=== PATIENT | female | born 1970 | race African-American/Black ===

== ENCOUNTER → 2021-05-15 | Outpatient (CLI) | payer BC ==
[~2021-05-15] MED LIST: AMLO1CAP5 PO; DOCU-109 PO; ESTR2TAB3 PO; OXYC1TAB19 PO; PSYL0.5215 PO
--- NOTE | 2021-05-15 08:52 | RAD ---
EXAMINATION: US ABDOMEN LIMITED INDICATION: 50 years, Female, right upper quadrant abdominal pain. COMPARISON: None. TECHNIQUE: Grayscale, color Doppler and limited spectral Doppler images of the right upper quadrant w ere obtained. FINDINGS: LIVER: SIZE (LENGTH): 17.2 cm. ECHOGENICITY: Increased. PARENCHYMA: Mild heterogeneous echotexture. No discrete focal lesion. INTRAHEPATIC BILE DUCTS: Nondilated. PORTAL VEIN: Patent with normal hepatopedal flow. GALLBLADDER: GALLBLADDER WALL THICKNESS: 2 mm. MORPHOLOGY: Contracted gallbladder. No pericholecystic free fluid. LUMEN: There is a 1.6 cm cholelithiasis. COMMON BILE DUCT DIAMETER: 4.3 mm RIGHT KIDNEY: MEASURES: 9.3 cm in length. MORPHOLOGY/PARENCHYMA: Normal corticomedullary differentiation with no shadowing calculus or discrete masses. COLLECTING SYSTEM: No hydronephrosis. PANCREAS: VISUALIZED PORTIONS: Head and body. APPEARANCE: Within normal limits. OTHER: RETROPERITONEUM, INFERIOR VENA CAVA: Normal caliber. AORTA: Normal caliber. FLUID:No free fluid. IMPRESSION: 1. Large cholelithiasis without sonographic evidence of acute cholecystitis. 2. Mild to moderate hepatic steatosis. Electronically signed by: Beau Case MD (05/15/2021 8:50 AM) [id number]
== END ==
LOC: US 07:12
PROVIDERS: ATTEND Specialist
DX: K80.20 Calculus of gallbladder without cholecystitis without obstruction (principal); K76.0 Fatty (change of) liver, not elsewhere classified
CPT/HCPCS: 76705

== ENCOUNTER 2021-05-28 07:15 | Day surgery (SDC) | payer BC ==
[~2021-05-28] VITALS: Ht 165.1 cm; Wt 78.0 kg
[~2021-05-28 07:15] MED LIST changes: -AMLO1CAP5 PO; -DOCU-109 PO; -ESTR2TAB3 PO; +HYDROmorphone 2 MG/ML VIAL IVP PRN; +IV RINGERS,LACTATED 1000ML 1,000 ML IV SCH; +MORPHINE SULFATE 2 MG/ML INJ. IVP PRN; -OXYC1TAB19 PO; +PROCHLORPERAZINE 10 MG/2 ML VIAL. IVP PRN; -PSYL0.5215 PO; +fentaNYL PF VIAL 100 MCG/2 ML VIAL IVP PRN
[2021-05-28] MEDS ORDERED: IOHEXOL 300 MG/ML 50 ML VIAL. ONE (07:23)
[2021-05-28] MEDS ORDERED: BUPIVACAINE-EPI 0.5%-1:200000 MPF 30 ML VIAL. ONE (07:23)
[2021-05-28] MEDS ORDERED: ESTR2TAB3 PO (07:49)
[2021-05-28] MEDS ORDERED: AMLO1CAP5 PO (07:49)
[2021-05-28 07:52] VITALS: BP 139/71
[2021-05-28] MEDS ORDERED: ceFAZolin SODIUM IV Push 1 GM VIAL. IVP PRN (08:00)
[2021-05-28] MEDS ORDERED: PROPOFOL 10 MG/ML (20ML) VIAL. IV ONE (08:45)
[2021-05-28] MEDS ORDERED: LIDOCAINE 2% PF 5 ML VIAL. ONE (08:46)
[2021-05-28] MEDS ORDERED: ONDANSETRON PF 4 MG/2 ML VIAL. ONE (08:46)
[2021-05-28] MEDS ORDERED: DEXAMETHASONE SOD PHOS 4 MG/ML VIAL ONE (08:46)
[2021-05-28] MEDS ORDERED: ROCURONIUM 50 MG/5 ML VIAL. ONE (08:47)
[2021-05-28] MEDS ORDERED: fentaNYL PF VIAL 100 MCG/2 ML VIAL ONE ×3 (08:48→12:37)
[2021-05-28] MEDS ORDERED: MIDAZOLAM HCL/PF 2 MG/2 ML VIAL. ONE (08:49)
--- NOTE | 2021-05-28 09:05 | PREOP HP ---
DATE OF SERVICE: 05/28/2021 HISTORY OF PRESENT ILLNESS: The patient is referred by Dr. Stefani Decker because of the gallstones. Apparently, a few week or 2 ago, she had acute episode of epigastric distress and slowly nausea and vomiting, radiating to the right abdomen and also some to the left. She had a CT done on an emergency basis and it did show gallstones with no other abnormalities. The patient has not had such episode since then, has been on a low fat, low cholesterol diet. PAST MEDICAL HISTORY: Shows normal childhood diseases. She does have hypertension, for which she takes medication. PAST SURGICAL HISTORY: She also has had surgery and had a total abdominal hysterectomy about 20 years ago for bleeding, fibroids and in fact took ovaries too. She therefore was on hormone replacement. ALLERGIES: SHE IS ALLERGIC TO FLAGYL, SULFA DRUGS AND SHE BREAKS OUT WITH A RASH. SOCIAL HISTORY: The patient does not drink, smoke or use illicit drugs. REVIEW OF SYSTEMS: Now is negative as she has no abdominal pain, but she did have it 1 or 2 occasions and that prompted Emergency Room visit and a CT scan. PHYSICAL EXAMINATION: GENERAL: Shows an alert female in no acute distress. HEAD, EYES, EARS, NOSE AND THROAT: Grossly normal. CHEST: Clear bilaterally to auscultation. HEART: Had a regular rate of 72 beats per minute and no murmurs, heaves or friction rubs were noted. BREASTS: Not examined. ABDOMEN: Soft, no masses, no organomegaly and no tenderness at this point. She did have the Pfannenstiel incision from her previous hysterectomy and that is all the surgery that she has had. PELVIC: Not done. RECTAL: Not done. EXTREMITIES: Grossly normal. IMPRESSION: Chronic cholecystitis and cholelithiasis. The patient is here and admitted for cholecystectomy. JOHNNA SY: Kimmie TID: [id number]
--- NOTE | 2021-05-28 09:26 | PDOC ---
SURGICAL PROGRESS NOTE DATE: 05/28/21 TIME: 09:25 No change in dictated H&P. Vital Signs Vital Signs Date Time Temp Pulse Resp B/P (MAP) Pulse Ox O2 Delivery O2 Flow Rate FiO2 05/28/21 07:52 97.2 65 18 98 97.2 05/28/21 07:39 139/71 Room Air Justicifation of Admission Dx: Justifications for Admission: Justification of Admission Dx: Yes CT CASTILLO MD May 28, 2021 09:26
--- NOTE | 2021-05-28 09:29 | PDOC ---
SURGICAL PROGRESS NOTE DATE: 05/28/21 TIME: 09:26 Op Note: Surgeon...........................................Jamie Pre opr diag......................................cholelitrhiasis Post op diag.....................................cholelithiasis Anesthesia.......................................general Procedure........................................lap milton with grams Drains.............................................none Blood loss......................................15cc Fluids............................................See anesthesia sheet Condition.......................................satisfactory Vital Signs Vital Signs Date Time Temp Pulse Resp B/P (MAP) Pulse Ox O2 Delivery O2 Flow Rate FiO2 05/28/21 07:52 97.2 65 18 98 97.2 05/28/21 07:39 139/71 Room Air Justicifation of Admission Dx: Justifications for Admission: Justification of Admission Dx: Yes CT CASTILLO MD May 28, 2021 09:29
[2021-05-28] MEDS ORDERED: NEOSTIGMINE METHYLSULFATE 5 MG/5 ML SYRINGE. ONE (09:40)
[2021-05-28] MEDS ORDERED: GLYCOPYRROLATE 1 MG/5 ML VIAL. ONE (09:40)
[2021-05-28] MEDS ORDERED: SEVOFLURANE > 120 MINUTES. IH ONE (09:46)
[2021-05-28] MEDS ORDERED: PHENYLEPHRINE in 0.9% NACL PF 1 MG/10 ML SYRINGE. IV ONE (09:49)
[2021-05-28] MEDS ORDERED: ePHEDrine PF IN SALINE 50 MG/10 ML SYRINGE. IV ONE (10:00)
[2021-05-28 10:12] LABS: BASO # 0.1 x10^3/uL (0.0-0.2); BASO % 1 % (0-3); EOS # 0.1 x10^3/uL (0.0-0.7); EOS % 2 % (0-3); HEMATOCRIT 37.2 % (36.0-47.0); HEMOGLOBIN 12.4 g/dL (12.0-15.5); LYMPH # 2.9 x10^3/uL (1.0-4.8); LYMPH % 50 % (24-48); MEAN CORPUSCULAR HEMOGLOBIN 28 pg (25-35); MEAN CORPUSCULAR HGB CONC 33 g/dL (31-37); MEAN CORPUSCULAR VOLUME 84 fL (79-100); MONO # 0.4 x10^3/uL (0.0-1.1); MONO % 7 % (0-9); NEUT # 2.4 x10^3/uL (1.8-7.7); NEUT % 41 % (31-73); PLATELET COUNT 315 x10^3/uL (140-400); RED BLOOD COUNT 4.44 x10^6/uL (3.50-5.40); RED CELL DISTRIBUTION WIDTH 13.9 % (11.5-14.5); WHITE BLOOD COUNT 5.8 x10^3/uL (4.0-11.0)
[2021-05-28 10:28] LABS: CALCIUM 8.7 mg/dL (8.5-10.1); CREATININE 0.8 mg/dL (0.6-1.0); GFR 91.1; POTASSIUM 3.6 mmol/L (3.5-5.1)
[2021-05-28 10:34] LABS: ALBUMIN 3.1 g/dL (3.4-5.0); ALBUMIN/GLOBULIN RATIO 0.8 (1.0-1.7); TOTAL BILIRUBIN 0.3 mg/dL (0.2-1.0); TOTAL PROTEIN 7.2 g/dL (6.4-8.2)
--- NOTE | 2021-05-28 10:43 | RAD ---
DG INTRAOPERATIVE CHOLANGIOGRAM History: Reason: CHOLANGIOGRAMS IN OR WITH C-ARM / pain. Cholecystectomy. Comparison: None. Technique/findings: Fluoroscopy provided intraoperatively during cholangiogram status post cholecystectomy. Opacification of the normal caliber biliary system. Contrast opacifies the small bowel with slight reflux into the ectatic duct. See procedure note for further details. Fluoroscopy time: Less than 1 minute. Number of fluoroscopic images: 5 Impression: 1. Fluoroscopy provided intraoperatively. No common bile duct obstruction. FOR INTERNAL CODING PURPOSES Critical result: Findings discussed with Dr. Ayala at 05/28/2021 10:40 AM. RESULT CODE: (C) Electronically signed by: Gil Olivares DO (05/28/2021 10:40 AM) [id number]
--- NOTE | 2021-05-28 11:48 | DISCH ---
DISCHARGE INSTRUCTIONS Condition on Discharge Condition on Discharge: Stable Activity After Discharge Activity Instructions for Disc: Avoid exertion Diet after Discharge Diet after Discharge: [place], Clear Liquid Additional Diet Restrictions: clear liquids until without nausea then diet as pr Wound Incision Care Other wound/incision instructi: leave dressing on and in place..may shower Follow-Up Follow up with: call and make appointment to see me in 10-[address] CASTILLO MD May 28, 2021 11:48
[2021-05-28] MEDS ORDERED: DOCU-109 PO (12:09)
[2021-05-28] MEDS ORDERED: OXYC1TAB19 PO (12:09)
[2021-05-28] MEDS ORDERED: PSYL0.5215 PO (12:11)
[2021-05-28] MEDS ORDERED: oxyCODONE/APAP 7.5/325 1 TAB TABLET PO ONE (12:15)
[2021-05-28] MEDS ORDERED: KETOROLAC 30 MG/ML VIAL. ONE (12:37)
[2021-05-28] MEDS ORDERED: KETOROLAC 30 MG/ML VIAL. IV PRN (12:40)
[2021-05-28 13:45] VITALS: BP 116/64
--- NOTE | 2021-05-29 08:29 | OP ---
DATE OF SURGERY: 05/28/2021 SURGEON: Ventura Ayala MD PREOPERATIVE DIAGNOSIS: Chronic cholecystitis and cholelithiasis. POSTOPERATIVE DIAGNOSIS: Chronic cholecystitis and cholelithiasis. ANESTHESIA: General. PROCEDURE: Laparoscopic cholecystectomy with intraoperative cholangiogram. DESCRIPTION OF PROCEDURE: Under general anesthesia, the patient was properly prepped and draped in routine fashion. She had previous lower abdominal surgery including hysterectomy and as such, we decided not to go in around the umbilicus as there may be adhesions there. As such, in the right upper quadrant about 2-3 cm below the costal margin just lateral to the rectus muscle, we made a small incision in an oblique fashion, so that we could have a standard subcostal incision if necessary. This was about a centimeter in size. We put up on either side with towel clips and then passed a Veress needle into the peritoneal cavity. We instilled about 2-3 mL of saline, which flowed freely by gravity into the peritoneal cavity. The abdomen was then insufflated with CO2 up to 15. We then removed the needle and placed a 5 mm trocar in this area and then placed a 5 mm scope. We inspected the abdomen locally. There were no adhesions to the anterior abdominal wall. As such, we then made a small incision in the infraumbilical area with a 15 blade and placed a 10 mm trocar there. We then placed the camera in that port and proceeded to place port in the epigastrium just to the right of the falciform ligament and also one in the right lower abdomen, more lateral than the previous port. We placed the portals in each and it should be noted that cutting blade was not used for this. We then placed the graspers in the right abdominal ports and then dissector in the epigastric port. We placed the patient in reverse Trendelenburg, left side down and identified the gallbladder. The colon was distended and was kept out of the way and not injured. There was no collapse of bowel that we could noted. No evidence of injury to the intra-abdominal contents. The gallbladder was then grasped with the right lateral grasper and pushed up towards the right shoulder and the ampulla of the gallbladder was grasped with the right upper quadrant grasper. There were no adhesions and we took some of the peritoneum around the gallbladder near the cystic duct. We teased it away and encircled the cystic duct high up and at its junction with the gallbladder. We then placed 2 clips on the gallbladder side. We then passed a needle and then passed a catheter, so that we could get a cholangiogram and placed this into the abdomen, keeping bubbles out of the syringe. We then made a marleen using scissors at the junction of the gallbladder and the cystic duct and then passed the catheter there and clipped it in place. We got cholangiograms. The radiologist and I agree that there was no evidence of biliary obstruction, stones or other abnormalities of the biliary system. The liver radicals were noted. Common duct was normal and flowed freely into the duodenum. We then removed the clip and the catheter and then clipped the cystic duct three times near this small incision, so there would be no leak. We then divided the cystic duct and then identified the cystic artery, clipped it 3 times on the patient's side, once on the gallbladder side and divided it with scissors. We then used the Harmonic scalpel to slowly remove the gallbladder from the gallbladder bed. We did not injure the liver. There was no burning and we simply did this in a fashion and did not enter the gallbladder. Before we completely removed the gallbladder, we looked at the ampulla and there was no bleeding, no bile leaks and all appeared normal. We then amputated the gallbladder from the liver tip and then placed the camera in the epigastric port and passed the EndoCatch basket into the abdomen through the umbilical port. We then placed the gallbladder ____so the gallbladder could not get away and then slowly removed the basket. The gallbladder was difficult to get out, but we were able to get it out the stone, which was there which was about 1.5 cm or so in size. It did come out without difficulties with the gallbladder intact. It should be noted that we did get the bowel back without stones before we did the cholangiogram. We then inspected the infraumbilical area and the small opening in the fascia was approximated transversely with 2-0 Prolene sutures. We identified the anterior abdominal wall and verified that there was no injury to the intra-abdominal contents and there was nothing adherent to the anterior abdominal wall, so that nothing had been injured. We then inspected the abdomen, there no further bleeding. Very minimal blood was noted lateral to the liver. This was aspirated, but there was no purulence there. We inspected all of the liver and other areas. All was normal and we then through the right upper quadrant grasper, we opened all the other grasper stones, CO2 all and removed the graspers and opened the port up and then aspirated all the CO2 out of the abdomen. The ports were then removed. The incisions were irrigated with saline and then the subcutaneous was approximated with 4-0 Vicryl and the skin was closed in all locations using a subcuticular 5-0 Vicryl. Sterile Tegaderm dressings were applied and the procedure was terminated. Blood loss was about 15 mL or so. Fluids given can be obtained from the anesthesia sheet. No drains were used and the condition of the patient was satisfactory as she was returned to the recovery room. ALEJANDRA/PATRICA DR: Kimmie TID: [id number]
--- NOTE | 2021-05-29 17:06 | PATHOLOGY ---
[facility] Accession Number: [id number] . 01 Material submitted: . gallbladder - GALLBLADDER . 01 Clinical history: . Cholelithiasis . 02 Diagnosis: Gallbladder, laparoscopic cholecystectomy: - Cholelithiasis. - Chronic cholecystitis. ([facility]; 05/29/2021) [facility] 05/29/2021 0908 Local . 02 Comment: There is no evidence of malignancy. ([facility]; 05/29/2021) . 02 Electronically signed: . Sin Andrew MD, Pathologist NPI- [id number] . 01 Gross description: . Fixative: Formalin Labeled: Gallbladder Specimen received: Intact gallbladder Dimensions: 6.5 x 2.2 x 2.2 cm Serosa: Light lara-romano Lymph node: None identified Mucosa: Velvety and bile-stained and focally patchy Average wall thickness: 0.1 cm Calculi: Single calculi found measuring up to 1.0 cm, dark green and granular Abnormalities: None identified . A1- Taco Maker body, fundus, and the cystic duct margin. ([facility]; 05/28/2021) [facility] 05/28/2021 1735 Local . 02 Pathologist provided ICD-10: K80.10 . 02 CPT . 397417 Specimen Comment: A courtesy copy of this report has been sent to [phone] Specimen Comment: Report sent to Specimen Comment: A duplicate report has been generated due to demographic updates. Performed at: 01 [facility] [address], [place], [place] [id number] MD Vincenzo Sinha MD Phone: [phone] Performed at: 02 [facility] [address] [place], [place] [id number] MD Sin Andrew MD Phone: [phone]
== END 2021-05-28 14:30 | disposition home or self-care (01) ==
LOC: SURG 07:15
PROVIDERS: ATTEND Specialist
DX: K80.10 Calculus of gallbladder with chronic cholecystitis without obstruction (principal); I10 Essential (primary) hypertension; Z86.73 Personal history of transient ischemic attack (TIA), and cerebral infarction without residual deficits; Z90.710 Acquired absence of both cervix and uterus; Z79.899 Other long term (current) drug therapy; Z98.890 Other specified postprocedural states; Z72.89 Other problems related to lifestyle; Z88.8 Allergy status to other drugs, medicaments and biological substances; Z88.2 Allergy status to sulfonamides
CPT/HCPCS: 36415; 47563; 74300; 80053; 85025; 85610; 85730; A4213; A4314; A4930; A6257; A6258; A6402; C1887; J0690; J1100; J1885; J2250; J2370; J2405; J2704; J2710; J3010; J3490; Q9967; A4657

== ENCOUNTER → 2021-06-07 | Outpatient (CLI) | payer BC ==
[2021-05-28 13:45] VITALS: BP 116/64
[~2021-06-07] MED LIST changes: +AMLO1CAP5 PO; +DOCU-109 PO; +ESTR2TAB3 PO; -HYDROmorphone 2 MG/ML VIAL IVP PRN; -IV RINGERS,LACTATED 1000ML 1,000 ML IV SCH; -MORPHINE SULFATE 2 MG/ML INJ. IVP PRN; +OXYC1TAB19 PO; -PROCHLORPERAZINE 10 MG/2 ML VIAL. IVP PRN; +PSYL0.5215 PO; -fentaNYL PF VIAL 100 MCG/2 ML VIAL IVP PRN
[2021-06-07 12:48] LABS: ALBUMIN 3.2 g/dL (3.4-5.0); ALBUMIN/GLOBULIN RATIO 0.8 (1.0-1.7); CALCIUM 8.5 mg/dL (8.5-10.1); CREATININE 0.7 mg/dL (0.6-1.0); GFR 106.3; POTASSIUM 3.8 mmol/L (3.5-5.1); TOTAL BILIRUBIN 0.2 mg/dL (0.2-1.0); TOTAL PROTEIN 7.4 g/dL (6.4-8.2)
== END ==
LOC: LAB 12:13
PROVIDERS: ATTEND Specialist
DX: K80.10 Calculus of gallbladder with chronic cholecystitis without obstruction (principal)
CPT/HCPCS: 36415; 80053